=== PATIENT | female | born 1975 | race African-American/Black ===

== ENCOUNTER 2020-02-29 08:29 | Day surgery (SDC) | payer OTHER, SELFPAY ==
[~2020-02-29] VITALS: Ht 157.5 cm; Wt 63.5 kg
[2020-02-29] MEDS ORDERED: diphenhydrAMINE 50 MG/ML VIAL ONE (09:58)
[2020-02-29] MEDS ORDERED: fentaNYL citrate 0.05 MG/ML VIAL ONE (09:58)
[2020-02-29] MEDS ORDERED: MIDAZOLAM 5 MG/5 ML VIAL ONE (09:58)
[2020-02-29] MEDS ORDERED: fentaNYL citrate 0.05 MG/ML VIAL IVP ONE (12:00)
[2020-02-29] MEDS ORDERED: MIDAZOLAM 2 MG/2 ML VIAL IVP ONE (12:00)
== END 2020-02-29 11:10 | disposition home or self-care (01) ==
LOC: MFCC 08:29 → MDS 08:29
PROVIDERS: ATTEND Internal Medicine Gastroenterology
DX: R13.10 Dysphagia, unspecified (principal); K22.2 Esophageal obstruction; I10 Essential (primary) hypertension; E03.9 Hypothyroidism, unspecified; E11.9 Type 2 diabetes mellitus without complications; Z85.3 Personal history of malignant neoplasm of breast; Z85.818 Personal history of malignant neoplasm of other sites of lip, oral cavity, and pharynx; Z90.710 Acquired absence of both cervix and uterus; Z92.3 Personal history of irradiation; Z79.899 Other long term (current) drug therapy; Z20.828 Contact with and (suspected) exposure to other viral communicable diseases
CPT/HCPCS: 43249; J2250; J3010; U0003; J1200

== ENCOUNTER 2020-04-11 06:11 | Day surgery (SDC) | payer OTHER, SELFPAY ==
[~2020-04-11] VITALS: Ht 157.5 cm; Wt 63.5 kg
[2020-04-11] MEDS ORDERED: diphenhydrAMINE 50 MG/ML VIAL ONE (07:27)
[2020-04-11] MEDS ORDERED: fentaNYL citrate 0.05 MG/ML VIAL ONE (07:28)
[2020-04-11] MEDS ORDERED: MIDAZOLAM 5 MG/5 ML VIAL ONE (07:28)
[2020-04-11] MEDS ORDERED: fentaNYL citrate 0.05 MG/ML VIAL IVP ONE (08:40)
[2020-04-11] MEDS ORDERED: MIDAZOLAM 2 MG/2 ML VIAL IVP ONE (08:40)
== END 2020-04-11 09:05 | disposition home or self-care (01) ==
LOC: MDS 06:11 → MFCC 06:12 → MDS 09:05
PROVIDERS: ATTEND Internal Medicine Gastroenterology
DX: R13.10 Dysphagia, unspecified (principal); K22.2 Esophageal obstruction; Z98.82 Breast implant status; Z90.710 Acquired absence of both cervix and uterus; Z85.3 Personal history of malignant neoplasm of breast; Z79.899 Other long term (current) drug therapy
CPT/HCPCS: 43249; 87426; C1769; J2250; J3010; J1200

== ENCOUNTER 2020-06-20 07:12 | Day surgery (SDC) | payer OTHER, SELFPAY ==
[~2020-06-20] VITALS: Ht 157.5 cm; Wt 63.5 kg
[2020-06-20] MEDS ORDERED: diphenhydrAMINE 50 MG/ML VIAL ONE (09:08)
[2020-06-20] MEDS ORDERED: fentaNYL citrate 0.05 MG/ML VIAL ONE (09:08)
[2020-06-20] MEDS ORDERED: MIDAZOLAM 5 MG/5 ML VIAL ONE (09:08)
[2020-06-20] MEDS ORDERED: fentaNYL citrate 0.05 MG/ML VIAL IVP ONE (09:55)
[2020-06-20] MEDS ORDERED: MIDAZOLAM 2 MG/2 ML VIAL IVP ONE (09:55)
== END 2020-06-20 12:24 | disposition home or self-care (01) ==
LOC: MDS 07:12 → MMU 07:12 → MDS 12:24
PROVIDERS: ATTEND Internal Medicine Gastroenterology
DX: R13.10 Dysphagia, unspecified (principal); K22.2 Esophageal obstruction; E46 Unspecified protein-calorie malnutrition; Z79.899 Other long term (current) drug therapy; Z20.828 Contact with and (suspected) exposure to other viral communicable diseases
CPT/HCPCS: 43248; C1769; J2250; J3010; U0003; J1200

== ENCOUNTER 2020-08-29 06:55 | Day surgery (SDC) | payer OTHER, SELFPAY ==
[~2020-08-29] VITALS: Ht 157.5 cm; Wt 64.9 kg
[2020-08-29] MEDS ORDERED: fentaNYL citrate 0.05 MG/ML VIAL ONE (08:04)
[2020-08-29] MEDS ORDERED: diphenhydrAMINE 50 MG/ML VIAL ONE (08:04)
[2020-08-29] MEDS ORDERED: MIDAZOLAM 5 MG/5 ML VIAL ONE (08:04)
[2020-08-29] MEDS ORDERED: LIDOCAINE VISCOUS 2% 20 ML UDC ONE (08:21)
[2020-08-29] MEDS ORDERED: MIDAZOLAM 2 MG/2 ML VIAL IVP ONE (12:50)
[2020-08-29] MEDS ORDERED: fentaNYL citrate 0.05 MG/ML VIAL IVP ONE (12:50)
== END 2020-08-29 12:00 | disposition home or self-care (01) ==
LOC: MDS 06:55 → MMU 07:13 → MDS 12:00
PROVIDERS: ATTEND Internal Medicine Gastroenterology
DX: R13.10 Dysphagia, unspecified (principal); K22.2 Esophageal obstruction; E11.9 Type 2 diabetes mellitus without complications; E46 Unspecified protein-calorie malnutrition; Z85.3 Personal history of malignant neoplasm of breast; Z20.822 Contact with and (suspected) exposure to COVID-19; Z79.899 Other long term (current) drug therapy
CPT/HCPCS: 43248; J2250; J3010; U0003; J1200

== ENCOUNTER 2021-04-17 11:05 | Day surgery (SDC) | payer OTHER, SELFPAY ==
[~2021-04-17] VITALS: Ht 157.5 cm; Wt 69.9 kg
[2021-04-17] MEDS ORDERED: fentaNYL citrate 0.05 MG/ML VIAL ONE (11:24)
[2021-04-17] MEDS ORDERED: MIDAZOLAM 5 MG/5 ML VIAL ONE (11:24)
[2021-04-17] MEDS ORDERED: diphenhydrAMINE 50 MG/ML VIAL ONE (11:24)
[2021-04-17] MEDS ORDERED: diphenhydrAMINE 50 MG/ML VIAL IVP ONE (13:30)
[2021-04-17] MEDS ORDERED: MIDAZOLAM 2 MG/2 ML VIAL IVP ONE (13:30)
[2021-04-17] MEDS ORDERED: fentaNYL citrate 0.05 MG/ML VIAL IVP ONE (13:30)
== END 2021-04-17 14:15 | disposition home or self-care (01) ==
LOC: MDS 11:05 → MMU 11:05 → MDS 14:15
PROVIDERS: ATTEND Internal Medicine Gastroenterology
DX: Z12.11 Encounter for screening for malignant neoplasm of colon (principal); R13.10 Dysphagia, unspecified; K63.5 Polyp of colon; I10 Essential (primary) hypertension; E11.9 Type 2 diabetes mellitus without complications; Z85.44 Personal history of malignant neoplasm of other female genital organs; Z93.1 Gastrostomy status; Z79.899 Other long term (current) drug therapy; Z20.822 Contact with and (suspected) exposure to COVID-19
CPT/HCPCS: 43239; 45385; 87426; J1200; J2250; J3010

== ENCOUNTER 2023-06-24 22:24 | Observation (INO) | payer OTHER ==
[~2023-06-24] VITALS: Ht 157.5 cm; Wt 34.5 kg
[2023-06-24 22:24] VITALS: BP 115/77; PULSE 96; RESP 17; TEMP 98.1; O2SAT 100
[2023-06-24 22:41] VITALS: O2SAT 99
[2023-06-24 23:33] LABS: FLU A ANTIGEN negative (NEGATIVE); FLU B ANTIGEN NEGATIVE (NEGATIVE)
[2023-06-25] VITALS (9 sets, daily range): BP systolic 94–96; BP diastolic 60–75; PULSE 56–89; RESP 14–18; TEMP 97.7–208; O2SAT 98–100
[2023-06-25] MEDS: NACL 0.9% 1,000 ML IV SCH (00:02)
[2023-06-25] MEDS ORDERED: cefTRIAXone 1,000 MG VIAL ONE (00:09)
[2023-06-25 00:38] LABS: BASOPHILS % (AUTO) 0.6 % (0.0-2.0); EOSINOPHILS % (AUTO) 0.3 % (0.0-4.0); HEMATOCRIT 34.9 % (36-48); HEMOGLOBIN 11.3 g/dL (12.0-16.0); LYMPHOCYTES % (AUTO) 12.9 % (20.5-51.1); MEAN CORPUSCULAR HEMOGLOBIN 26 pg (27-31); MEAN CORPUSCULAR HGB CONC 32 g/dL (33-37); MEAN CORPUSCULAR VOLUME 80.8 fL (80-94); MONOCYTES # (AUTO) 0.6 K/uL (0.8-1.0); MONOCYTES % (AUTO) 8.6 % (1.7-9.3); NEUTROPHILS # (AUTO) 5.7 K/uL (1.8-7.7); NEUTROPHILS % (AUTO) 77.6 % (42.2-75.2); PLATELET COUNT (AUTO) 326 K/uL (140-450); RED BLOOD CELL COUNT(AUTO) 4.32 MIL/uL (4.20-5.40); RED CELL DISTRIBUTION WIDTH 19.1 % (11.6-13.7); WHITE BLOOD COUNT (AUTO) 7.4 K/uL (4.8-10.8)
[2023-06-25 00:54] LABS: APPEARANCE,URINE SL CLOUDY (CLEAR); BILIRUBIN,URINE NEGATIVE (NEGATIVE); BLOOD, URINE NEGATIVE (NEGATIVE); COLOR,URINE YELLOW (YELLOW); LEUKOCYTE ESTERASE ,URINE 2+ (NEGATIVE); NITRITE, URINE NEGATIVE (NEGATIVE); PROTEIN,URINE 1+ (NEGATIVE); UGLUCOSE NEGATIVE (NEGATIVE); UROBILINOGEN,URINE 0.2 EU/dL (0.2 - 1)
[2023-06-25 00:55] LABS: ANION GAP 10.1 (8-16); CARBON DIOXIDE 32.6 mmol/L (21-32); POTASSIUM 3.7 mmol/L (3.5-5.1)
[2023-06-25 00:56] LABS: CALCIUM 9.3 mg/dL (8.5-10.1); CREATININE 0.6 mg/dL (0.6-1.3)
[2023-06-25 00:58] LABS: LACTIC ACID 1.4 mmol/L (0.4-2.0)
[2023-06-25 01:01] LABS: BACTERIA,URINE >30 (MANY) /HPF (None Seen); MUCUS,URINE 1+ /LPF (None Seen); RBC,URINE 0-5 /HPF (0-5); SQUAMOUS EPITHELIAL CELL,UR 4-10 (MOD) /LPF (0-3 (FEW))
[2023-06-25] MEDS: cefTRIAXone 1,000 MG in DEXT 5% MINI-BAG PLUS 50 ML IV ONE (01:38)
[2023-06-25] MEDS: MORPHINE SULFATE 4 MG/ML SYR IVP ONE (01:38)
[2023-06-25] MEDS ORDERED: HYDROcodone/APAP 5/325 MG 1 TAB TAB PO PRN (02:05)
[2023-06-25] MEDS ORDERED: ONDANSETRON 4 MG/2 ML VIAL IVP PRN (02:05)
[2023-06-25] MEDS ORDERED: ACETAMINOPHEN 325 MG TAB PO PRN (02:05)
[2023-06-25] MEDS ORDERED: MAG SULF 2000 MG/WATER PREMIX 50 ML IV PRN (02:05)
[2023-06-25] MEDS ORDERED: KCL 20 MEQ IN 100 mL PREMIX 200 ML IV PRN (02:05)
[2023-06-25] MEDS ORDERED: POTASSIUM CHLORIDE 10 MEQ TABER PO PRN (02:05)
[2023-06-25] MEDS ORDERED: LORazepam 1 MG TAB PO PRN (02:05)
[2023-06-25] MEDS ORDERED: ZOLPIDEM 5 MG TAB PO PRN (02:05)
[2023-06-25] MEDS: fentaNYL citrate 0.05 MG/ML VIAL IVP ONE (02:32)
[2023-06-25] MEDS: DEXT 5% /NACL 0.9% 1,000 ML IV SCH (03:01)
[2023-06-25] MEDS ORDERED: CRUSHER, PILL MC ONE (04:45)
[2023-06-25] MEDS: oxyCODONE 5 MG TAB PO PRN (05:31)
[2023-06-25] MEDS ORDERED: [UNRECOGNIZED DRUG - CODE] PO (06:18)
[2023-06-25] MEDS ORDERED: OXYC-79 PO (06:18)
[2023-06-25] MEDS: ENOXAPARIN 40 MG/0.4 ML SYR SUBQ SCH (09:09)
[2023-06-25] MEDS ORDERED: DEXTROSE 50% 50 ML SYR IVP PRN ×2 (12:05→17:20)
[2023-06-25] MEDS: INSULIN LISPRO SLIDING SCALE 100 UNITS/ML VIAL SUBQ PRN (12:15)
[2023-06-25] MEDS: MORPHINE SULFATE 4 MG/ML SYR IVP PRN (12:16)
[2023-06-25] MEDS: BLOOD GLUCOSE MONITORING 1 DEV DEV FS SCH (16:56)
[2023-06-25] MEDS ORDERED: INSULIN LISPRO SLIDING SCALE 100 UNITS/ML VIAL SUBQ PRN (17:20)
[2023-06-25] MEDS ORDERED: MEDS-TO-BEDS MC SCH (21:00)
[2023-06-25] MEDS ORDERED: BLOOD GLUCOSE MONITORING 1 DEV DEV FS SCH (21:00)
== END 2023-06-25 19:55 | disposition home or self-care (01) ==
LOC: MED 22:24 → MTU 06-25 02:04 → MMU 06-25 02:04 → MTU 06-25 03:05
PROVIDERS: ADMIT Hospitalist; ATTEND Hospitalist
DX: E11.649 Type 2 diabetes mellitus with hypoglycemia without coma (principal); Z20.822 Contact with and (suspected) exposure to COVID-19; R07.89 Other chest pain; N39.0 Urinary tract infection, site not specified; Z93.0 Tracheostomy status; Z85.3 Personal history of malignant neoplasm of breast; Z85.01 Personal history of malignant neoplasm of esophagus; Z79.899 Other long term (current) drug therapy
CPT/HCPCS: 36415; 71045; 80048; 81001; 82948; 83036; 83605; 83880; 84484; 85025; 87040; 87081; 87086; 87426; 87804; 93005; 94760; 96361; 96365; 96372; 96375; 96376; 99285; G0378; J0696; J1650; J1815; J2270; J3010; J7060